=== PATIENT | female | born 1960 | race African-American/Black ===

== ENCOUNTER 2016-11-11 08:14 | Emergency (ER) | payer OTHER ==
[~2016-11-11] VITALS: Ht 170.2 cm; Wt 102.0 kg
[2016-11-11] MEDS ORDERED: IBUPROFEN 600MG TABLET PO ONE (10:15)
[2016-11-11 10:24] VITALS: BP 150/61
== END 2016-11-11 10:25 | disposition home or self-care (01) ==
LOC: ER 08:29 → EDBD 08:29 → ER 10:25
DX: M79.642 Pain in left hand (principal); M25.532 Pain in left wrist; F17.210 Nicotine dependence, cigarettes, uncomplicated
CPT/HCPCS: 73110; 73130; 99284